=== PATIENT | male | born 1985 | race Caucasian/White ===

== ENCOUNTER 2020-01-16 14:23 | Emergency (ER) | payer MEDICAID, OTHER ==
[~2020-01-16] VITALS: Ht 182.9 cm; Wt 136.1 kg
[2020-01-16 14:50] VITALS: BP 122/69
--- NOTE | 2020-01-16 16:03 | NUR ---
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
--- NOTE | 2020-01-16 16:56 | NUR ---
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
== END 2020-01-16 16:58 | disposition home or self-care (01) ==
LOC: ED 14:45
DX: B34.9 Viral infection, unspecified (principal); Z20.828 Contact with and (suspected) exposure to other viral communicable diseases
CPT/HCPCS: 71045; 87635; 99284